=== PATIENT | female | born 1990 | race Caucasian/White ===

== ENCOUNTER → 2016-11-24 | Outpatient (CLI) | payer OTHER ==
[2016-11-24 10:33] LABS: BASOPHILS # (AUTO) 0.01 10*3/UL; BASOPHILS % (AUTO) 0.2 % (0-1); EOSINOPHILS # (AUTO) 0.03 10*3/UL; EOSINOPHILS % (AUTO) 0.6 % (0-8); HEMATOCRIT 41.7 % (37.0-47.0); HEMOGLOBIN 14.3 g/dL (12.0-16.0); MEAN CORPUSCULAR HEMOGLOBIN 30.2 PG (27-31); MEAN CORPUSCULAR HGB CONC 34.3 g/dL (33-37); MEAN PLATELET VOLUME 11.1 FL (7.4-12.2); MONOCYTES # (AUTO) 0.27 10*3/UL (0.3-0.8); MONOCYTES % (AUTO) 5.1 % (5-15); NEUTROPHILS # (AUTO) 3.83 10*3/UL; NEUTROPHILS % (AUTO) 71.6 % (50-80); RED BLOOD COUNT 4.74 10^6/uL (4.20-5.40)
[2016-11-24 10:40] LABS: PLATELET MORPHOLOGY COMMENT NORMAL MORPHOLOGY (NORM); RBC MORPHOLOGY COMMENT NORMAL MORPHOLOGY (NORM); WBC MORPHOLOGY COMMENT NORMAL MORPHOLOGY (NORM)
[2016-11-24 11:03] LABS: HIV ANTIBODY NEGATIVE (N); HIV-1 P24 ANTIGEN NEGATIVE (N)
[2016-11-25 13:32] LABS: HEP B SURFACE AG Negative (Negative)
== END ==
LOC: MOB LAB 09:17
PROVIDERS: ATTEND Family Medicine
DX: Z36 Encounter for antenatal screening of mother (principal)
CPT/HCPCS: 36415; 80081; 86900; 86901; 87088

== ENCOUNTER → 2016-11-24 | Outpatient (CLI) | payer OTHER ==
--- NOTE | 2016-11-24 09:03 | DI ---
OBSTETRICAL ULTRASOUND, 11/24/2016 7:58 AM: Clinical History: Verify dates. Previous Exam: None at this facility for this . LMP: 09/18/2016. There is a single live IUP currently in unstable position. Amnionic fluid content is normal. The plac enta is probably posterior corpus and Grade 0. heart rate is 170 beats/minute and regular. The yolk sac is visualized. Both ovaries are normal. Gestational sac measurement is 35 mm corresponding t o 9 weeks 0 days. CRL measurement is 26 mm. This measurement corresponds to an EGA value of 9 weeks 3 days. The composite EGA is 9 weeks 2 days. The US EDC is 06/27/2017.. EDC by LMP is 06/25/2017.. Readin. Single live fetus with unstable presentation and normal amniotic fluid content. Placenta wall pro bably be posterior corpus. Grade is 0. 2. The composite EGA is 9 weeks 2 days with an ultrasound EDC of 06/27/2017. The EDC based on the LM P of 09/18/2016 would be 06/25/2017.
--- NOTE | 2016-12-03 15:42 | DI ---
See transabdominal OB ultrasound on this patient performed the same day for this report.
== END ==
LOC: US 07:50
PROVIDERS: ATTEND Family Medicine
DX: Z36 Encounter for antenatal screening of mother (principal)
CPT/HCPCS: 76801; 76817

== ENCOUNTER → 2016-12-22 | Outpatient (CLI) | payer OTHER | LOC: MOB LAB 16:00 | PROVIDERS: ATTEND Family Medicine | DX: Z36 Encounter for antenatal screening of mother (principal); Z3A.13 13 weeks gestation of pregnancy | CPT/HCPCS: 87491; 87591 ==

== ENCOUNTER → 2017-02-10 | Outpatient (CLI) | payer OTHER ==
--- NOTE | 2017-02-10 09:25 | DI ---
US OB GTE 14 WEEKS,02/10/2017 7:38 AM: Clinical History: Encounter for anatomic survey. Previous Exam: None at this facility. Findings: Multiple grayscale and color Doppler sonographic images are obtained through the pelvis, and demonstr ate a single live intrauterine gestation in vertex presentation. The cervix is long and closed, and measured 4.0 cm in length. Detected Doppler heart tones measure 138 beats per minute. anatomic survey is grossly normal without any visible defects. Estimated gestational age was determined by a composite of biparietal diameter, head circumference, a bdominal circumference and femur length yielding an estimated gestational age by ultrasound of 20 wee ks 4 days. Estimated weight is 355 g (31st percentile). The placenta is posterior and grade 1 without visible defects. Amniotic fluid level is subjectively n ormal. Umbilical cord Doppler is were obtained demonstrating SD ratios of between 3.0 and 5.4. Impression: Single live intrauterine gestation with size equal to dates. Normal anatomy scan.
== END ==
LOC: US 07:35
PROVIDERS: ATTEND Family Medicine
DX: Z36 Encounter for antenatal screening of mother (principal); Z3A.20 20 weeks gestation of pregnancy
CPT/HCPCS: 76805

== ENCOUNTER → 2017-04-07 | Outpatient (CLI) | payer OTHER ==
[2017-04-07 09:17] LABS: HEMATOCRIT 39.7 % (37.0-47.0); HEMOGLOBIN 13.9 g/dL (12.0-16.0); MEAN CORPUSCULAR HEMOGLOBIN 32.1 PG (27-31); MEAN CORPUSCULAR VOLUME 91.7 FL (81-99); MEAN PLATELET VOLUME 10.8 FL (7.4-12.2); RED BLOOD COUNT 4.33 10^6/uL (4.20-5.40)
== END ==
LOC: LAB 08:00
PROVIDERS: ATTEND Family Medicine
DX: Z36 Encounter for antenatal screening of mother (principal); Z3A.28 28 weeks gestation of pregnancy
CPT/HCPCS: 36415; 82950; 84443; 85027

== ENCOUNTER 2017-06-23 16:07 | Inpatient (IN) ==
[2017-06-23] MEDS ORDERED: LIDOCAINE W/ SODIUM BICARB 0.5 ML SYR ONE (16:54)
[2017-06-23] MEDS ORDERED: CITRIC ACID/SODIUM CITRATE 30 ML CUP PO PRN (17:24)
[2017-06-23] MEDS ORDERED: Carboprost Inj 250 MCG/ML AMP IM PRN (17:24)
[2017-06-23] MEDS ORDERED: METHYLERGONOVINE MALEATE 0.2 MG/1 ML VIAL IM PRN (17:24)
[2017-06-23] MEDS ORDERED: Phenylephrine Inj 50 MCG in Normal Saline Flush 0.5 ML IVP PRN ×2 (17:24→22:50)
[2017-06-23] MEDS ORDERED: Lidocaine 1% 10 MG/ML - 20 ML VIAL SUBCUT PRN (17:24)
[2017-06-23] MEDS ORDERED: LIDOCAINE W/ SODIUM BICARB 0.5 ML SYR SUBD PRN (17:24)
[2017-06-23] MEDS ORDERED: NALOXONE 0.4 MG/1 ML VIAL IVP PRN ×2 (17:24→22:50)
[2017-06-23] MEDS ORDERED: Famotidine Inj 20 MG in Normal Saline Flush 10 ML IVP PRN ×4 (17:24)
[2017-06-23] MEDS ORDERED: TERBUTALINE SULFATE 1 MG/1 ML SDV SUBCUT PRN (17:24)
[2017-06-23] MEDS ORDERED: Oxytocin 20 Units + LR 20 UNIT/1,000 ML BAG IV SCH ×2 (17:24→20:45)
[2017-06-23] MEDS ORDERED: diphenhydrAMINE 50 MG/1 ML VIAL IVP PRN ×2 (17:24→22:50)
[2017-06-23] MEDS ORDERED: Naloxone Inj 0.01 MG in Normal Saline Flush 1 ML IVP PRN ×2 (17:24→22:50)
[2017-06-23] MEDS ORDERED: ONDANSETRON 4 MG/2 ML VIAL IVP PRN (17:24)
[2017-06-23] MEDS ORDERED: ePHEDrine Inj 5 MG in Normal Saline Flush 1 ML IVP PRN ×2 (17:24→22:50)
[2017-06-23] MEDS ORDERED: BUTORPHANOL TARTRATE 2 MG/1 ML VIAL IVP PRN ×2 (17:24→22:50)
[2017-06-23] MEDS ORDERED: MISOPROSTOL 200 MCG TABLET RECTAL PRN (17:24)
[2017-06-23] MEDS ORDERED: OXYTOCIN 10 UNIT/1 ML IM PRN (17:24)
[2017-06-23] MEDS ORDERED: Metoclopramide Inj 10 MG/2 ML VIAL IV PRN (17:24)
[2017-06-23] MEDS ORDERED: LIDOCAINE HCL 2 % 10 ML JELLY URO-JECT TOPICAL PRN (17:24)
[2017-06-23] MEDS ORDERED: Nalbuphine Inj 20 MG/ML Ampule IVP PRN ×2 (17:24→22:50)
[2017-06-23] MEDS ORDERED: CefOXitin Inj 2 GM in Sodium Chloride 0.9% 100 ML IV PRN (17:24)
[2017-06-23] MEDS ORDERED: fentaNYL Inj 100 MCG/2 ML VIAL IV PRN (17:24)
[2017-06-23] MEDS ORDERED: CALCIUM CARBONATE 500 MG (TUMS) CHEWABLE TABLET PO PRN (17:24)
[2017-06-23 17:27] LABS: Hematocrit [HCT] 38.5 % (37.0-47.0); Hemoglobin [HGB] 13.1 g/dL (12.0-16.0); MEAN CORPUSCULAR HEMOGLOBIN 30.3 PG (27-31); MEAN CORPUSCULAR VOLUME 89.1 FL (81-99); MEAN PLATELET VOLUME 12.6 FL (7.4-12.2); RED BLOOD COUNT 4.32 10^6/uL (4.20-5.40)
[2017-06-23] MEDS: NORMAL SALINE 10 ML SYRINGE FLUSH IVP PRN (17:30)
[2017-06-23] MEDS ORDERED: Influenza 17-18 Vaccine (6mo+) Quad 60mcg/0.5ml PF IM ONE (19:07)
[2017-06-23] MEDS: Lactated Ringers-OB Dept 1,000 ML PRIMARY IV SCH ×3 (19:56→23:17)
[2017-06-23] MEDS ORDERED: Fent/Bupiv 2mcg/0.0625% Epid 250 ML ONE (22:38)
--- NOTE | 2017-06-23 22:49 | CRNA.PROCE ---
Central Neuraxis Block Placemt - - Safety Measures: Time Out Taken, Site Verified - - Type of Block: Epidural Reason for Block: Analgesia Moniters Used During Block: SPO2, NIBP Skin Prep Used: Betadine Draped: Yes Skin Infiltration - Enter Amount Used in Comment Field: 1% Xylocaine (mL): Yes ( wheal) Introducer User: [id number] Gauge Onel Local Anesthetic - Enter Amount Used in Comment Field: 1.5 % Xylocaine with Epinephrine 1:200,000 (mL): Yes (5ml) Number of Centimeters Catheter Threaded: 4 Bioclusive Dressing Applied: Yes Anesthesia Time - Other Weight: 80.286 kg Height: 5 ft 10 in Body Mass Index (BMI): 25.4
--- NOTE | 2017-06-23 22:49 | CRNA.PROGR ---
Anesthesia Time - - Start date: 06/23/17 End date: 06/24/17 - Procedure/Recovery Time Anesthesia : Time In: 10:10 Anesthesia : Time Out: 04:26 Anesthesia : Total Time: 1096 - Total Anesthesia Time Total Anesthesia Time (minutes): 1096 - Other Weight: 80.286 kg Height: 5 ft 10 in Body Mass Index (BMI): 25.4 Physical Status: P2 Anesthesia Type: Epidural Obstetrics: Planned vaginal delivery w/ neuraxial labor anesthesia/analog
[2017-06-24] MEDS: NORMAL SALINE 10 ML SYRINGE FLUSH IVP PRN (02:00)
--- NOTE | 2017-06-24 05:28 | OB.DEL.SUM ---
Delivery Note Delivery Summary: Ms. Graff is a 26 yo G1 at 39 4/7 weeks by early /s who presented to labor and delivery yesterday afternoon with the complaint of leakage of fluid that started around 1345 yesterday. She had had a few contractions prior to arrival at the hospital. Her GBS status was negative. She was 5/60/-1 on admission. She ambulated several times and had very slow change of her cervix in active labor. She was augmented with low dose pitocin. At 0320, recurrent late deceleration were noted. Resuscitative measures were undertaken by the nurse. These largely resolved. She began pushing at 0335. With good effort, she delivered a viable female over an intact perineum at 0426. The baby was vigorous and crying right after delivery. There was a nuchal cord x 1 and a body cord. Her nose and mouth were suctioned with the bulb suction. The cord was doubly clamped by myself and cut by the father of the baby 45 seconds after delivery. The placenta delivered at 0430, spontaneously and intact with a 3 vessel cord. The vagina and perineum were examined and a small first degree vaginal laceration was noted and repaired in the normal fashion with 3-0 vicryl rapide suture. A tiny, but oozing, left vaginal side wall laceration was also noted and closed with a figure-of-8 suture. No other lacerations were noted. Apgars were 10 at 1 minute and 10 at 5 minutes. Baby weighed 6#5 oz. Both mom and baby tolerated delivery well and are in stable condition at this time.
[2017-06-24] MEDS ORDERED: LANOLIN HPA 40 GM TUBE TOPICAL PRN (07:12)
[2017-06-24] MEDS ORDERED: BENZOCAINE/MENTHOL SPRAY 56 GM BOTTLE TOPICAL PRN (07:12)
[2017-06-24] MEDS ORDERED: ACETAMINOPHEN 325 MG TABLET PO PRN (07:12)
[2017-06-24] MEDS ORDERED: diphenhydrAMINE 50 MG/1 ML VIAL IVP PRN (07:12)
[2017-06-24] MEDS ORDERED: CALCIUM CARBONATE 500 MG (TUMS) CHEWABLE TABLET PO PRN (07:12)
[2017-06-24] MEDS ORDERED: Nalbuphine Inj 20 MG/ML Ampule IVP PRN (07:12)
[2017-06-24] MEDS ORDERED: DIPH,PERTUSS,TET(ADACEL) VAC/PF 0.5 ML (Tdap) IM ONE (07:12)
[2017-06-24] MEDS ORDERED: HYDROcodone-APAP 5 MG -325 MG TABLET PO PRN (07:12)
[2017-06-24] MEDS ORDERED: Ondansetron ODT Tab 4 MG TAB PO PRN (07:12)
[2017-06-24] MEDS ORDERED: ONDANSETRON 4 MG/2 ML VIAL IVP PRN (07:12)
[2017-06-24] MEDS ORDERED: diphenhydrAMINE 25 MG CAPSULE PO PRN (07:12)
[2017-06-24] MEDS ORDERED: NORMAL SALINE 10 ML SYRINGE FLUSH IVP PRN (07:12)
[2017-06-24] MEDS ORDERED: GLYCERIN/WITCH HAZEL 1 BOX TOPICAL PRN (07:12)
[2017-06-24] MEDS ORDERED: Oxytocin 20 Units + LR 20 UNIT/1,000 ML BAG IV SCH (07:12)
[2017-06-24] MEDS ORDERED: LIDOCAINE HCL 2 % 10 ML JELLY URO-JECT TOPICAL PRN (07:12)
[2017-06-24] MEDS: IBUPROFEN 800 MG TABLET PO PRN (08:02)
[2017-06-24] MEDS: DOCUSATE 100 MG CAPSULE PO SCH ×2 (08:02→21:25)
[2017-06-24] MEDS ORDERED: Lactated Ringers-OB Dept 1,000 ML ONE (10:35)
--- NOTE | 2017-06-24 10:36 | CRNA.PROGR ---
Anesthesia Note - Progress Notes Anesthesia Progress Note: Sitting up in bed holding baby. Has been up and ambulatory ad caleb. Epidural dc' d intact by OB rn. She has no questions or concerns regarding her anesthetic course. Vital Signs (24 hrs) Temp Pulse Pulse Resp BP BP Pulse Ox 06/24/17 06:00 97.9 F 66 18 115/74 06/24/17 05:30 91 18 118/87 06/24/17 05:15 71 18 121/78 06/24/17 05:00 80 18 125/73 06/24/17 04:45 77 18 109/78 06/24/17 04:30 98.1 F 96 18 126/78 06/24/17 03:00 64 18 130/75 06/24/17 02:00 65 18 135/81 06/24/17 01:00 66 18 121/83 06/24/17 00:15 54 L 129/81 06/24/17 00:00 51 L 18 115/70 06/23/17 23:30 97.3 F 54 L 18 125/79 06/23/17 22:45 98 06/23/17 21:15 98.3 F 66 16 110/68 99 06/23/17 21:00 98.3 F 66 16 136/87 06/23/17 19:30 98.5 F 65 16 136/87 06/23/17 17:00 98.3 F 67 16 136/87 99
[2017-06-24] MEDS ORDERED: POTASSIUM CHLORIDE 20 MEQ TAB PO ONE (20:02)
[2017-06-25 06:45] LABS: Hematocrit [HCT] 33.7 % (37.0-47.0); Hemoglobin [HGB] 11.5 g/dL (12.0-16.0); MEAN CORPUSCULAR HEMOGLOBIN 31.3 PG (27-31); MEAN CORPUSCULAR HGB CONC 34.1 g/dL (33-37); MEAN CORPUSCULAR VOLUME 91.6 FL (81-99); MEAN PLATELET VOLUME 12.8 FL (7.4-12.2); RED BLOOD COUNT 3.68 10^6/uL (4.20-5.40)
[2017-06-25] MEDS ORDERED: Prenatal Multivitamin Tab 1 TAB TAB PO SCH (09:00)
[2017-06-25] MEDS: IBUPROFEN 800 MG TABLET PO PRN (09:14)
[2017-06-25] MEDS: DOCUSATE 100 MG CAPSULE PO SCH (09:15)
[2017-06-25 09:59] VITALS: BP 112/64; RESP 16; TEMP 97.8; O2SAT 98
[2017-06-25] MEDS ORDERED: Lidocaine Inj 1% 20 ML ONE (14:02)
--- NOTE | 2017-07-03 18:07 | OB.PROGRES ---
Subjective Post Op Day: 1 Pain Management: PO [place] Catheter: No Flatus: Yes Diet: Regular Feeding Method: Exculsively Ambulating: Yes Concerns / Additional Information: Mild lochia. Pt has no complaints or concerns. Objective - General General Appearance: POSITIVE: No Acute Distress, Cooperative - Cardiovacular Cardiovascular Exam: POSITIVE: RRR, No Murmur Edema: No Pedal Edema Extremities: Negative Andra's - Bilaterally - Respiratory Respiratory Exam: POSITIVE: Clear to Auscultation - Bilaterally, Breathing Non Labored - Fundus/Lochia/Perineum Uterus Consistency: Firm Uterus Position: POSITIVE: At Umbilicus Assesstment / Plan (1) Spontaneous vaginal delivery Status: Acute Assessment / Plan: -routine cares. -rh positive. -rubella immune. -breast feeding going well. -pt requesting discharge home this afternoon.
== END 2017-06-25 13:40 | disposition home or self-care (01) | DRG 775 ==
LOC: OBOP 16:07 → OBIP 17:12
PROVIDERS: ADMIT Family Medicine; ATTEND Family Medicine

== ENCOUNTER 2019-06-22 07:12 | Inpatient (IN) ==
[2019-06-22] MEDS ORDERED: CALCIUM CARBONATE 500 MG (TUMS) CHEWABLE TABLET PO PRN (14:31)
[2019-06-22] MEDS ORDERED: ONDANSETRON 4 MG/2 ML VIAL IVP PRN (14:31)
[2019-06-22] MEDS ORDERED: METHYLERGONOVINE MALEATE 0.2 MG/1 ML VIAL IM PRN (14:31)
[2019-06-22] MEDS ORDERED: OXYTOCIN 10 UNIT/1 ML IM PRN (14:31)
[2019-06-22] MEDS ORDERED: diphenhydrAMINE 50 MG/1 ML VIAL IVP PRN (14:31)
[2019-06-22] MEDS ORDERED: MISOPROSTOL 200 MCG TABLET RECTAL PRN (14:31)
[2019-06-22] MEDS ORDERED: LIDOCAINE HCL 2 % 10 ML JELLY URO-JECT TOPICAL PRN (14:31)
[2019-06-22] MEDS ORDERED: NALOXONE 0.4 MG/1 ML VIAL IVP PRN (14:31)
[2019-06-22] MEDS ORDERED: Nalbuphine Inj 20 MG/ML Ampule IVP PRN (14:31)
[2019-06-22] MEDS ORDERED: Carboprost Inj 250 MCG/ML AMP IM PRN (14:31)
[2019-06-22] MEDS ORDERED: fentaNYL Inj 100 MCG/2 ML VIAL IV PRN (14:31)
[2019-06-22] MEDS ORDERED: TERBUTALINE SULFATE 1 MG/1 ML SDV SUBCUT PRN (14:31)
[2019-06-22] MEDS ORDERED: CefOXitin Inj 2 GM in Sodium Chloride 0.9% 100 ML IV PRN (14:31)
[2019-06-22] MEDS ORDERED: Lidocaine 1% 10 MG/ML - 20 ML VIAL SUBCUT PRN (14:31)
[2019-06-22] MEDS ORDERED: Phenylephrine Inj 50 MCG in Sodium Chloride 0.9% vial 0.5 ML IVP PRN (14:31)
[2019-06-22] MEDS ORDERED: Metoclopramide Inj 10 MG/2 ML VIAL IV PRN (14:31)
[2019-06-22] MEDS ORDERED: FAMOTIDINE 20 MG/2 ML VIAL IVP PRN ×2 (14:31)
[2019-06-22] MEDS ORDERED: CITRIC ACID/SODIUM CITRATE 30 ML CUP PO PRN (14:31)
[2019-06-22] MEDS ORDERED: BUTORPHANOL TARTRATE 2 MG/1 ML VIAL IVP PRN (14:31)
[2019-06-22] MEDS ORDERED: LIDOCAINE W/ SODIUM BICARB 0.5 ML SYR SUBD PRN (14:31)
[2019-06-22] MEDS ORDERED: Naloxone Inj 0.01 MG in Sodium Chloride 0.9% vial 1 ML IVP PRN (14:31)
[2019-06-22] MEDS ORDERED: Oxytocin 20 Units + LR 20 UNIT/1,000 ML BAG IV SCH ×2 (14:45→20:45)
[2019-06-22 15:09] LABS: Hematocrit [HCT] 39.3 % (37.0-47.0); Hemoglobin [HGB] 13.5 g/dL (12.0-16.0); MEAN CORPUSCULAR HGB CONC 34.4 g/dL (33-37); MEAN CORPUSCULAR VOLUME 90.6 FL (81-99); MEAN PLATELET VOLUME 10.9 FL (7.4-12.2); RED BLOOD COUNT 4.34 10^6/uL (4.20-5.40)
[2019-06-22] MEDS: Lactated Ringers-OB Dept 1,000 ML PRIMARY IV SCH ×2 (15:17→21:00)
[2019-06-22] MEDS: Ampicillin Inj 1 GM in Sodium Chloride 0.9% 100 ML IV SCH ×2 (19:13→23:55)
[2019-06-22] MEDS ORDERED: Fent/Bupiv 2mcg/0.0625% Epid 250 ML ONE (21:36)
[2019-06-22] MEDS ORDERED: fentaNYL 2 MCG/BUPIVACAINE 0.0625%/NS 0.9% 250 ML BAG EPIDURAL SCH (22:00)
[2019-06-23] MEDS: Lactated Ringers-OB Dept 1,000 ML PRIMARY IV SCH (00:30)
[2019-06-23] MEDS ORDERED: diphenhydrAMINE 25 MG CAPSULE PO PRN (03:21)
[2019-06-23] MEDS ORDERED: CALCIUM CARBONATE 500 MG (TUMS) CHEWABLE TABLET PO PRN (03:21)
[2019-06-23] MEDS ORDERED: IBUPROFEN 800 MG TABLET PO PRN (03:21)
[2019-06-23] MEDS ORDERED: Oxytocin 20 Units + LR 20 UNIT/1,000 ML BAG IV SCH (03:21)
[2019-06-23] MEDS ORDERED: HYDROcodone-APAP 5 MG -325 MG TABLET PO PRN (03:21)
[2019-06-23] MEDS ORDERED: BENZOCAINE/MENTHOL SPRAY 56 GM BOTTLE TOPICAL PRN (03:21)
[2019-06-23] MEDS ORDERED: Lidocaine 1% 10 MG/ML - 20 ML VIAL INTRADERM PRN (03:21)
[2019-06-23] MEDS ORDERED: diphenhydrAMINE 50 MG/1 ML VIAL IVP PRN (03:21)
[2019-06-23] MEDS ORDERED: LANOLIN HPA 40 GM TUBE TOPICAL PRN (03:21)
[2019-06-23] MEDS ORDERED: Nalbuphine Inj 20 MG/ML Ampule IVP PRN (03:21)
[2019-06-23] MEDS ORDERED: ACETAMINOPHEN 325 MG TABLET PO PRN (03:21)
[2019-06-23] MEDS ORDERED: LIDOCAINE HCL 2 % 10 ML JELLY URO-JECT TOPICAL PRN (03:21)
[2019-06-23] MEDS ORDERED: GLYCERIN/WITCH HAZEL 1 BOX TOPICAL PRN (03:21)
[2019-06-23] MEDS ORDERED: ONDANSETRON 4 MG/2 ML VIAL IVP PRN (03:21)
[2019-06-23] MEDS ORDERED: Ondansetron ODT Tab 4 MG TAB PO PRN (03:21)
[2019-06-23] MEDS ORDERED: DIPH,PERTUSS,TET(ADACEL) VAC/PF 0.5 ML (Tdap) IM ONE (03:21)
[2019-06-23] MEDS ORDERED: Lactated Ringers-OB Dept 1,000 ML ONE (08:21)
[2019-06-23] MEDS ORDERED: MMR VACCINE 12500 UNIT/0.5 ML SUBCUT ONE (09:00)
[2019-06-23] MEDS ORDERED: Prenatal Multivitamin Tab 1 TAB TAB PO SCH (09:00)
[2019-06-23] MEDS: DOCUSATE 100 MG CAPSULE PO SCH ×2 (09:10→20:50)
[2019-06-23 17:09] LABS: Hematocrit [HCT] 37.9 % (37.0-47.0); Hemoglobin [HGB] 12.8 g/dL (12.0-16.0); MEAN CORPUSCULAR HGB CONC 33.8 g/dL (33-37); MEAN PLATELET VOLUME 10.8 FL (7.4-12.2); RED BLOOD COUNT 4.12 10^6/uL (4.20-5.40)
[2019-06-23 19:56] VITALS: RESP 16; O2SAT 98
[2019-06-24 05:13] VITALS: BP 114/74; TEMP 98.1
[2019-06-24] MEDS ORDERED: DOCUSATE 100 MG CAPSULE PO SCH (09:00)
[2019-06-24] MEDS ORDERED: Prenatal Multivitamin Tab 1 TAB TAB PO SCH (09:00)
== END 2019-06-24 11:00 | disposition home or self-care (01) | DRG 807 ==
LOC: OBOP 07:12 → OBIP 14:31
PROVIDERS: ADMIT Family Medicine; ATTEND Family Medicine